=== PATIENT | female | born 1975 | race Caucasian/White ===

== ENCOUNTER → 2019-02-19 10:21 | Outpatient (CLI) | payer OTHER, MEDICAID, SELFPAY ==
[2019-02-19 11:48] LABS: Creatinine Urine Random 62.9 mg/dL
[2019-02-19 12:04] LABS: Alanine Aminotransferase 25 IU/L (9-52); Albumin Globulin Ratio 1.6 (1.0-2.8); Alkaline Phosphatase 81 U/L (38-126); Aspartate Aminotransferase 21 IU/L (14-36); BUN Creatinine Ratio 15.7 (6-22); Bilirubin Total 0.4 mg/dL (0.2-1.3); Blood Urea Nitrogen 11 mg/dL (7-17); Calcium 9.3 mg/dL (8.4-10.2); Carbon Dioxide 29 mmol/L (22-32); Chloride 99 mmol/L (98-107); Cholesterol 190 mg/dL (140-199); Estimated Glomerular Filt Rate > 60.0 mL/min (>60); Globulin 2.5 g/dL (1.7-4.1); Glucose 312 mg/dL (70-100); HDL Cholesterol 60 mg/dL (40-60); HEMOLYSIS < 15 (0-50); LDL Cholesterol Calculated 102 mg/dL (<100); Potassium 4.3 mmol/L (3.4-5.1); Sodium 135 mmol/L (137-145); Total Protein 6.5 g/dL (6.3-8.2); Triglycerides 139 mg/dL (35-150)
[2019-02-19 12:05] LABS: Hemoglobin A1C% w Est Avg Glu 12.2 % (4.0-6.0)
[2019-02-19 12:25] LABS: Microalbumi Creatinin Ratio Ur 1076.3 ug/mg CR (<30); Microalbumin Urine Random 67.7 mg/dL (0-1.6)
[2019-02-19 12:33] LABS: Thyroid Stimulating Hormone 2.62 uIU/mL (0.47-4.68)
== END ==
PROVIDERS: PCP Physician Assistant; Visit Provider Physician Assistant
DX: E11.65 Type 2 diabetes mellitus with hyperglycemia (principal); I10 Essential (primary) hypertension
CPT/HCPCS: 36415; 80053; 80061; 82043; 82570; 83036; 84443